=== PATIENT | male | born 1965 | race Caucasian/White ===

== ENCOUNTER → 2016-12-18 | Outpatient (CLI) | payer BC, OTHER ==
[2016-12-18 08:34] LABS: ALBUMIN 3.6 GM/DL (3.2-5.2); ALBUMIN/GLOBULIN RATIO 1.06 (1.00-1.93); ALKALINE PHOSPHATASE 102 U/L (45-117); ALT/SGPT 48 U/L (12-78); ANION GAP 6 MEQ/L (8-16); AST/SGOT 18 U/L (15-37); BILIRUBIN,TOTAL 0.3 MG/DL (0.2-1.0); BLOOD UREA NITROGEN 16 MG/DL (7-18); CARBON DIOXIDE LEVEL 29 MEQ/L (21-32); CHLORIDE LEVEL 106 MEQ/L (98-107); CHOLESTEROL LEVEL 239 MG/DL (<200); GLOMERULAR FILTRATION RATE > 60.0 (>56); GLUCOSE, FASTING 102 MG/DL (70-105); POTASSIUM SERUM 4.3 MEQ/L (3.5-5.1); SODIUM LEVEL 141 MEQ/L (136-145); THYROXINE (T4) 7.5 UG/DL (4.5-12.0); TRIGLYCERIDES LEVEL 446 MG/DL (<150)
== END ==
LOC: M LAB 06:41
PROVIDERS: ATTEND General Practice
DX: R53.83 Other fatigue (principal); R73.03 Prediabetes

== ENCOUNTER → 2017-10-12 | Outpatient (REF) | payer OTHER | LOC: M LAB REF 14:56 | DX: M60.221 Foreign body granuloma of soft tissue, not elsewhere classified, right upper arm (principal); L02.413 Cutaneous abscess of right upper limb | CPT/HCPCS: 88304 ==

== ENCOUNTER → 2017-12-24 | Outpatient (CLI) | payer BC, OTHER ==
[2017-12-24 07:44] LABS: HEMATOCRIT 43.6 % (42.0-52.0); HEMOGLOBIN 15.2 g/dl (13.5-17.5); MEAN CORPUSCULAR HEMOGLOBIN 30.5 pg (27.0-33.0); MEAN CORPUSCULAR HGB CONC 34.9 g/dl (32.0-36.5); MEAN CORPUSCULAR VOLUME 87.4 fl (80.0-96.0); PLATELET COUNT, AUTOMATED 182 10^3/uL (150-450); RED BLOOD COUNT 4.99 10^6/uL (4.30-6.10); RED CELL DISTRIBUTION WIDTH 11.9 % (11.5-14.5); WHITE BLOOD COUNT 5.3 10^3/uL (4.0-10.0)
[2017-12-24 08:13] LABS: ALBUMIN 3.9 GM/DL (3.2-5.2); ALBUMIN/GLOBULIN RATIO 1.15 (1.00-1.93); ALKALINE PHOSPHATASE 88 U/L (45-117); ALT/SGPT 79 U/L (12-78); ANION GAP 6 MEQ/L (8-16); AST/SGOT 35 U/L (7-37); BILIRUBIN,TOTAL 0.4 MG/DL (0.2-1.0); BLOOD UREA NITROGEN 14 MG/DL (7-18); CALCIUM LEVEL 8.2 MG/DL (8.5-10.1); CARBON DIOXIDE LEVEL 28 MEQ/L (21-32); CHLORIDE LEVEL 108 MEQ/L (98-107); CHOLESTEROL LEVEL 243 MG/DL (<200); FREE T4 0.98 NG/DL (0.76-1.46); GLOMERULAR FILTRATION RATE > 60.0 (>56); GLUCOSE, FASTING 96 MG/DL (70-100); HDL CHOLESTEROL 30 MG/DL (>40); NON-HDL-C 213 MG/DL; POTASSIUM SERUM 4.2 MEQ/L (3.5-5.1); SODIUM LEVEL 142 MEQ/L (136-145); THYROID STIMULATING HORMONE 0.727 uIU/ML (0.358-3.740); TOTAL PROTEIN 7.3 GM/DL (6.4-8.2); TRIGLYCERIDES LEVEL 525 MG/DL (<150)
[2017-12-24 09:19] LABS: TOTAL 25(OH) VITAMIN D 33.3 NG/ML (30.0-100.0)
== END ==
LOC: M LAB 06:39
DX: E78.00 Pure hypercholesterolemia, unspecified (principal); R53.81 Other malaise; E55.9 Vitamin D deficiency, unspecified; K62.5 Hemorrhage of anus and rectum
CPT/HCPCS: 84443

== ENCOUNTER → 2018-06-28 | Outpatient (CLI) | payer BC, OTHER ==
[2018-06-28 06:58] LABS: HEMATOCRIT 43.8 % (42.0-52.0); HEMOGLOBIN 14.8 g/dl (13.5-17.5); MEAN CORPUSCULAR HEMOGLOBIN 30.5 pg (27.0-33.0); MEAN CORPUSCULAR HGB CONC 33.8 g/dl (32.0-36.5); MEAN CORPUSCULAR VOLUME 90.3 fl (80.0-96.0); PLATELET COUNT, AUTOMATED 176 10^3/uL (150-450); RED BLOOD COUNT 4.85 10^6/uL (4.30-6.10); WHITE BLOOD COUNT 5.3 10^3/uL (4.0-10.0)
[2018-06-28 07:03] LABS: APPEARANCE, URINE CLEAR (CLEAR); BACTERIA, URINE AUTO NEGATIVE (NEGATIVE); BILIRUBIN, URINE AUTO NEGATIVE (NEGATIVE); BLOOD, URINE BLOOD NEGATIVE (NEGATIVE); COLOR, URINE YELLOW (YELLOW); GLUCOSE, URINE (UA) AUTO NEGATIVE (NEGATIVE); KETONE, URINE AUTO NEGATIVE (NEGATIVE); LEUKOCYTE ESTERASE, URINE AUTO NEGATIVE (NEGATIVE); MUCUS, URINE SMALL (NEGATIVE); NITRITE, URINE AUTO NEGATIVE (NEGATIVE); PROTEIN, URINE AUTO NEGATIVE (NEGATIVE); RBC, URINE AUTO 4 /HPF (0-3); SPECIFIC GRAVITY URINE AUTO 1.024 (1.002-1.035); SQUAMOUS EPITHELIAL CELL UR AU 1 /HPF (0-6); UROBILINOGEN, URINE AUTO 0.2 mg/dL (0.0-2.0); WBC, URINE AUTO 0 /HPF (0-3)
[2018-06-28 07:31] LABS: ALBUMIN 3.7 GM/DL (3.2-5.2); ALBUMIN/GLOBULIN RATIO 1.23 (1.00-1.93); ALKALINE PHOSPHATASE 85 U/L (45-117); ALT/SGPT 54 U/L (12-78); ANION GAP 8 MEQ/L (8-16); AST/SGOT 23 U/L (7-37); BILIRUBIN,TOTAL 0.5 MG/DL (0.2-1.0); BLOOD UREA NITROGEN 23 MG/DL (7-18); CALCIUM LEVEL 8.3 MG/DL (8.5-10.1); CARBON DIOXIDE LEVEL 29 MEQ/L (21-32); CHLORIDE LEVEL 105 MEQ/L (98-107); CHOLESTEROL LEVEL 231 MG/DL (<200); CHOLESTEROL RISK RATIO 8.884 (<5); CREATININE FOR GFR 1.27 MG/DL (0.70-1.30); FREE T4 0.94 NG/DL (0.76-1.46); GLOMERULAR FILTRATION RATE > 60.0 (>56); GLUCOSE, FASTING 103 MG/DL (70-100); HDL CHOLESTEROL 26 MG/DL (>40); NON-HDL-C 205 MG/DL; PROSTATIC SPECIFIC AG MONITOR 0.6 NG/ML (< 4.0); SODIUM LEVEL 142 MEQ/L (136-145); THYROID STIMULATING HORMONE 0.562 uIU/ML (0.358-3.740); TOTAL PROTEIN 6.7 GM/DL (6.4-8.2); TRIGLYCERIDES LEVEL 504 MG/DL (<150)
[2018-07-01 00:56] LABS: VITAMIN D 1,25 DIHYDROXY 51.3 pg/mL (19.9-79.3)
== END ==
LOC: M LAB 06:19
DX: N40.1 Benign prostatic hyperplasia with lower urinary tract symptoms (principal); E78.00 Pure hypercholesterolemia, unspecified; E55.9 Vitamin D deficiency, unspecified; R53.81 Other malaise
CPT/HCPCS: 84443

== ENCOUNTER → 2019-01-05 | Outpatient (CLI) | payer BC, OTHER ==
[2019-01-05 06:44] LABS: HEMATOCRIT 45.2 % (42.0-52.0); HEMOGLOBIN 15.3 g/dl (13.5-17.5); MEAN CORPUSCULAR HEMOGLOBIN 30.6 pg (27.0-33.0); MEAN CORPUSCULAR HGB CONC 33.8 g/dl (32.0-36.5); MEAN CORPUSCULAR VOLUME 90.4 fl (80.0-96.0); PLATELET COUNT, AUTOMATED 178 10^3/uL (150-450); WHITE BLOOD COUNT 5.6 10^3/uL (4.0-10.0)
[2019-01-05 07:17] LABS: ALBUMIN 3.8 GM/DL (3.2-5.2); ALT/SGPT 53 U/L (12-78); BILIRUBIN,TOTAL 0.4 MG/DL (0.2-1.0); BLOOD UREA NITROGEN 16 MG/DL (7-18); CALCIUM LEVEL 8.5 MG/DL (8.5-10.1); CARBON DIOXIDE LEVEL 31 MEQ/L (21-32); CHLORIDE LEVEL 107 MEQ/L (98-107); CHOLESTEROL LEVEL 240 MG/DL (<200); CHOLESTEROL RISK RATIO 8.888 (<5); CREATININE FOR GFR 1.13 MG/DL (0.70-1.30); GLOMERULAR FILTRATION RATE > 60.0 (>56); GLUCOSE, FASTING 105 MG/DL (70-100); HDL CHOLESTEROL 27 MG/DL (>40); NON-HDL-C 213 MG/DL; POTASSIUM SERUM 4.4 MEQ/L (3.5-5.1); SODIUM LEVEL 140 MEQ/L (136-145); THYROID STIMULATING HORMONE 0.721 uIU/ML (0.358-3.740); TOTAL PROTEIN 7.1 GM/DL (6.4-8.2); TRIGLYCERIDES LEVEL 609 MG/DL (<150)
[2019-01-05 09:29] LABS: VITAMIN B12 LEVEL 267 PG/ML (247-911)
== END ==
LOC: M LAB 06:06
PROVIDERS: ATTEND General Practice
DX: E78.00 Pure hypercholesterolemia, unspecified (principal)

== ENCOUNTER → 2020-01-26 | Outpatient (CLI) | payer BC, OTHER ==
[2020-01-26 10:10] LABS: HEMATOCRIT 44.8 % (42.0-52.0); MEAN CORPUSCULAR HEMOGLOBIN 30.3 pg (27.0-33.0); MEAN CORPUSCULAR HGB CONC 33.5 g/dl (32.0-36.5); MEAN CORPUSCULAR VOLUME 90.5 fl (80.0-96.0); PLATELET COUNT, AUTOMATED 191 10^3/uL (150-450); RED BLOOD COUNT 4.95 10^6/uL (4.30-6.10); WHITE BLOOD COUNT 5.4 10^3/uL (4.0-10.0)
[2020-01-26 10:41] LABS: ALBUMIN 3.8 GM/DL (3.2-5.2); ALT/SGPT 65 U/L (12-78); BILIRUBIN,TOTAL 0.4 MG/DL (0.2-1.0); BLOOD UREA NITROGEN 16 MG/DL (7-18); CALCIUM LEVEL 8.7 MG/DL (8.5-10.1); CARBON DIOXIDE LEVEL 28 MEQ/L (21-32); CHLORIDE LEVEL 108 MEQ/L (98-107); CHOLESTEROL LEVEL 279 MG/DL (<200); CREATININE FOR GFR 1.14 MG/DL (0.70-1.30); FREE T4 1.21 NG/DL (0.76-1.46); GLOMERULAR FILTRATION RATE > 60.0 (>56); GLUCOSE, FASTING 106 MG/DL (70-100); HDL CHOLESTEROL 31 MG/DL (>40); NON-HDL-C 248 MG/DL; POTASSIUM SERUM 4.8 MEQ/L (3.5-5.1); SODIUM LEVEL 141 MEQ/L (136-145); THYROID STIMULATING HORMONE 0.484 uIU/ML (0.358-3.740); TRIGLYCERIDES LEVEL 534 MG/DL (<150)
[2020-01-26 10:42] LABS: TOTAL 25(OH) VITAMIN D 50.1 NG/ML (30.0-100.0)
== END ==
LOC: M LAB 09:16
PROVIDERS: ATTEND General Practice
DX: E78.00 Pure hypercholesterolemia, unspecified (principal); R53.81 Other malaise; E55.9 Vitamin D deficiency, unspecified

== ENCOUNTER → 2020-07-30 | Outpatient (CLI) | payer BC, OTHER ==
[2020-07-30 07:08] LABS: AMORPHOUS SEDIMENT SMALL (NEGATIVE); APPEARANCE, URINE HAZY (CLEAR); BACTERIA, URINE AUTO NEGATIVE (NEGATIVE); BILIRUBIN, URINE AUTO NEGATIVE (NEGATIVE); BLOOD, URINE BLOOD NEGATIVE (NEGATIVE); CALCIUM OXALATE CRYSTALS SMALL; COLOR, URINE YELLOW (YELLOW); GLUCOSE, URINE (UA) AUTO NEGATIVE (NEGATIVE); KETONE, URINE AUTO NEGATIVE (NEGATIVE); LEUKOCYTE ESTERASE, URINE AUTO NEGATIVE (NEGATIVE); MUCUS, URINE SMALL (NEGATIVE); NITRITE, URINE AUTO NEGATIVE (NEGATIVE); PROTEIN, URINE AUTO NEGATIVE (NEGATIVE); RBC, URINE AUTO 2 /HPF (0-3); SPECIFIC GRAVITY URINE AUTO 1.021 (1.002-1.035); SQUAMOUS EPITHELIAL CELL UR AU 0 /HPF (0-6); UROBILINOGEN, URINE AUTO 0.2 mg/dL (0.0-2.0); WBC, URINE AUTO 0 /HPF (0-3)
[2020-07-30 07:56] LABS: ALBUMIN 3.7 GM/DL (3.2-5.2); ALT/SGPT 62 U/L (12-78); BILIRUBIN,TOTAL 0.4 MG/DL (0.2-1.0); BLOOD UREA NITROGEN 17 MG/DL (7-18); CALCIUM LEVEL 8.6 MG/DL (8.5-10.1); CARBON DIOXIDE LEVEL 29 MEQ/L (21-32); CHLORIDE LEVEL 108 MEQ/L (98-107); CHOLESTEROL LEVEL 257 MG/DL (<200); CHOLESTEROL RISK RATIO 8.566 (<5); CREATININE FOR GFR 1.33 MG/DL (0.70-1.30); FREE T4 0.98 NG/DL (0.76-1.46); GLOMERULAR FILTRATION RATE 59.9 (>56); GLUCOSE, FASTING 112 MG/DL (70-100); HDL CHOLESTEROL 30 MG/DL (>40); NON-HDL-C 227 MG/DL; PROSTATIC SPECIFIC AG MONITOR 0.46 NG/ML (< 4.00); SODIUM LEVEL 143 MEQ/L (136-145); THYROID STIMULATING HORMONE 0.411 uIU/ML (0.358-3.740); TOTAL PROTEIN 6.8 GM/DL (6.4-8.2); TRIGLYCERIDES LEVEL 414 MG/DL (<150)
== END ==
LOC: M LAB 06:36
PROVIDERS: ATTEND General Practice
DX: E78.00 Pure hypercholesterolemia, unspecified (principal); N40.1 Benign prostatic hyperplasia with lower urinary tract symptoms; R53.81 Other malaise; E55.9 Vitamin D deficiency, unspecified

== ENCOUNTER → 2021-02-05 | Outpatient (CLI) | payer BC, OTHER ==
[2021-02-05 07:47] LABS: ALBUMIN 3.8 GM/DL (3.2-5.2); ALT/SGPT 63 U/L (12-78); BILIRUBIN,TOTAL 0.4 MG/DL (0.2-1.0); BLOOD UREA NITROGEN 21 MG/DL (7-18); CALCIUM LEVEL 8.8 MG/DL (8.5-10.1); CARBON DIOXIDE LEVEL 29 MEQ/L (21-32); CHLORIDE LEVEL 109 MEQ/L (98-107); CHOLESTEROL LEVEL 261 MG/DL (<200); CHOLESTEROL RISK RATIO 9.321 (<5); CREATININE FOR GFR 1.08 MG/DL (0.70-1.30); GLOMERULAR FILTRATION RATE > 60.0 (>56); GLUCOSE, FASTING 102 MG/DL (70-100); HDL CHOLESTEROL 28 MG/DL (>40); NON-HDL-C 233 MG/DL; POTASSIUM SERUM 4.5 MEQ/L (3.5-5.1); SODIUM LEVEL 141 MEQ/L (136-145); THYROID STIMULATING HORMONE 0.586 uIU/ML (0.358-3.740); TRIGLYCERIDES LEVEL 532 MG/DL (<150)
== END ==
LOC: M LAB 06:14
PROVIDERS: ATTEND General Practice
DX: E78.00 Pure hypercholesterolemia, unspecified (principal); R53.81 Other malaise; E55.9 Vitamin D deficiency, unspecified

== ENCOUNTER → 2021-07-30 | Outpatient (CLI) | payer BC, OTHER ==
[2021-07-30 06:54] LABS: HEMATOCRIT 42.9 % (42.0-52.0); HEMOGLOBIN 14.5 g/dl (13.5-17.5); MEAN CORPUSCULAR HEMOGLOBIN 30.5 pg (27.0-33.0); MEAN CORPUSCULAR HGB CONC 33.8 g/dl (32.0-36.5); MEAN CORPUSCULAR VOLUME 90.1 fl (80.0-96.0); PLATELET COUNT, AUTOMATED 177 10^3/uL (150-450); RED BLOOD COUNT 4.76 10^6/uL (4.30-6.10); WHITE BLOOD COUNT 5.3 10^3/uL (4.0-10.0)
[2021-07-30 07:01] LABS: APPEARANCE, URINE HAZY (CLEAR); BACTERIA, URINE AUTO NEGATIVE (NEGATIVE); BILIRUBIN, URINE AUTO NEGATIVE (NEGATIVE); BLOOD, URINE BLOOD NEGATIVE (NEGATIVE); COLOR, URINE YELLOW (YELLOW); GLUCOSE, URINE (UA) AUTO NEGATIVE (NEGATIVE); KETONE, URINE AUTO NEGATIVE (NEGATIVE); LEUKOCYTE ESTERASE, URINE AUTO NEGATIVE (NEGATIVE); MUCUS, URINE SMALL (NEGATIVE); NITRITE, URINE AUTO NEGATIVE (NEGATIVE); PROTEIN, URINE AUTO NEGATIVE (NEGATIVE); RBC, URINE AUTO 1 /HPF (0-3); SQUAMOUS EPITHELIAL CELL UR AU 0 /HPF (0-6); UROBILINOGEN, URINE AUTO 0.2 mg/dL (0.0-2.0); WBC, URINE AUTO 0 /HPF (0-3)
[2021-07-30 07:25] LABS: ALBUMIN 3.8 GM/DL (3.2-5.2); ALT/SGPT 54 U/L (12-78); BILIRUBIN,TOTAL 0.4 MG/DL (0.2-1.0); BLOOD UREA NITROGEN 18 MG/DL (7-18); CARBON DIOXIDE LEVEL 30 MEQ/L (21-32); CHLORIDE LEVEL 105 MEQ/L (98-107); CHOLESTEROL LEVEL 243 MG/DL (<200); CHOLESTEROL RISK RATIO 7.593 (<5); CREATININE FOR GFR 1.16 MG/DL (0.70-1.30); FREE T4 0.98 NG/DL (0.76-1.46); GLOMERULAR FILTRATION RATE > 60.0 (>56); GLUCOSE, FASTING 110 MG/DL (70-100); HDL CHOLESTEROL 32 MG/DL (>40); LDL CHOLESTEROL 152 MG/DL (<100); NON-HDL-C 211 MG/DL; POTASSIUM SERUM 4.2 MEQ/L (3.5-5.1); SODIUM LEVEL 140 MEQ/L (136-145); TOTAL PROTEIN 7.1 GM/DL (6.4-8.2); TRIGLYCERIDES LEVEL 297 MG/DL (<150)
== END ==
LOC: M LAB 06:13
PROVIDERS: ATTEND General Practice
DX: N40.1 Benign prostatic hyperplasia with lower urinary tract symptoms (principal); E78.00 Pure hypercholesterolemia, unspecified; R53.81 Other malaise; E55.9 Vitamin D deficiency, unspecified
CPT/HCPCS: 36415; 80053; 80061; 81001; 82652; 84439; 84443; 85027; G0103

== ENCOUNTER → 2022-03-02 | Outpatient (CLI) | payer BC, OTHER ==
[2022-03-02 06:40] LABS: HEMATOCRIT 41.8 % (42.0-52.0); HEMOGLOBIN 13.9 g/dl (13.5-17.5); MEAN CORPUSCULAR HEMOGLOBIN 30.3 pg (27.0-33.0); MEAN CORPUSCULAR HGB CONC 33.3 g/dl (32.0-36.5); MEAN CORPUSCULAR VOLUME 91.1 fl (80.0-96.0); PLATELET COUNT, AUTOMATED 174 10^3/uL (150-450); RED BLOOD COUNT 4.59 10^6/uL (4.30-6.10); WHITE BLOOD COUNT 5.2 10^3/uL (4.0-10.0)
[2022-03-02 07:13] LABS: ALBUMIN 3.6 GM/DL (3.2-5.2); ALT/SGPT 44 U/L (12-78); BILIRUBIN,TOTAL 0.3 MG/DL (0.2-1.0); BLOOD UREA NITROGEN 13 MG/DL (7-18); CALCIUM LEVEL 8.5 MG/DL (8.5-10.1); CARBON DIOXIDE LEVEL 27 MEQ/L (21-32); CHLORIDE LEVEL 111 MEQ/L (98-107); CHOLESTEROL LEVEL 237 MG/DL (<200); CREATININE FOR GFR 1.11 MG/DL (0.70-1.30); GLOMERULAR FILTRATION RATE > 60.0 (>56); GLUCOSE, FASTING 115 MG/DL (70-100); HDL CHOLESTEROL 34 MG/DL (>40); LDL CHOLESTEROL 155 MG/DL (<100); NON-HDL-C 203 MG/DL; POTASSIUM SERUM 4.4 MEQ/L (3.5-5.1); SODIUM LEVEL 144 MEQ/L (136-145); THYROID STIMULATING HORMONE 0.733 uIU/ML (0.358-3.740); TOTAL PROTEIN 6.9 GM/DL (6.4-8.2); TRIGLYCERIDES LEVEL 240 MG/DL (<150)
[2022-03-02 12:15] LABS: TOTAL 25(OH) VITAMIN D 44.4 NG/ML (30.0-100.0)
== END ==
LOC: M LAB 06:12
PROVIDERS: ATTEND General Practice
DX: E78.00 Pure hypercholesterolemia, unspecified (principal); R53.81 Other malaise; E55.9 Vitamin D deficiency, unspecified

== ENCOUNTER → 2022-08-29 | Outpatient (CLI) | payer BC, OTHER ==
[2022-08-29 09:26] LABS: APPEARANCE, URINE MANUAL CLEAR (CLEAR); COLOR, URINE MANUAL YELLOW (YELLOW)
[2022-08-29 09:27] LABS: BILIRUBIN, URINE MANUAL NEGATIVE (NEGATIVE); BLOOD URINE MANUAL NEGATIVE (NEGATIVE); GLUCOSE, URINE (UA) MANUAL NEGATIVE (NEGATIVE); KETONE, URINE MANUAL NEGATIVE (NEGATIVE); LEUKOCYTE ESTERASE, URINE MAN NEGATIVE (NEGATIVE); NITRITE, URINE MANUAL NEGATIVE (NEGATIVE); PH,URINE MAN 7.5 UNITS (5.0 - 7.0); PROTEIN, URINE MANUAL NEGATIVE (NEGATIVE); SPECIFIC GRAVITY,URINE MANUAL 1.015 (1.002-1.035); UROBILINOGEN, URINE MANUAL NORMAL (NORMAL)
[2022-08-29 09:59] LABS: ALBUMIN 3.9 G/DL (3.2-5.2); ALKALINE PHOSPHATASE 94 U/L (46-116); ALT/SGPT 47 U/L (7.0-40); AST/SGOT 21 U/L (<34); BILIRUBIN,TOTAL 0.4 MG/DL (0.3-1.2); BLOOD UREA NITROGEN 16 MG/DL (9-23); CALCIUM LEVEL 9.3 MG/DL (8.5-10.1); CARBON DIOXIDE LEVEL 29 MMOL/L (20-31); CHLORIDE LEVEL 106 MMOL/L (98-107); CHOLESTEROL LEVEL 262 MG/DL (<200); CREATININE FOR GFR 1.04 MG/DL (0.70-1.30); GLOMERULAR FILTRATION RATE > 60.0 (>56); GLUCOSE, FASTING 108 MG/DL (60-100); HDL CHOLESTEROL 35.4 MG/DL (>40); LDL CHOLESTEROL 172.8 MG/DL (<100); NON-HDL-C 227 MG/DL; POTASSIUM SERUM 4.7 MMOL/L (3.5-5.1); SODIUM LEVEL 142 MMOL/L (136-145); TRIGLYCERIDES LEVEL 269 MG/DL (<150)
[2022-08-29 10:01] LABS: FREE T4 1.12 NG/DL (0.89-1.76); THYROID STIMULATING HORMONE 0.504 uIU/ML (0.55-4.78)
== END ==
LOC: M LAB 08:48
PROVIDERS: ATTEND General Practice
DX: E78.00 Pure hypercholesterolemia, unspecified (principal); N40.1 Benign prostatic hyperplasia with lower urinary tract symptoms; R53.81 Other malaise; E55.9 Vitamin D deficiency, unspecified; Z12.5 Encounter for screening for malignant neoplasm of prostate
CPT/HCPCS: 36415; 80053; 80061; 81002; 82652; 84439; 84443; G0103

== ENCOUNTER → 2022-09-30 | Outpatient (REF) | payer BC, OTHER | LOC: M LAB REF 16:04 | PROVIDERS: ATTEND Surgery | DX: L72.0 Epidermal cyst (principal) ==

== ENCOUNTER 2023-03-02 19:16 | Emergency (ER) | payer BC, OTHER ==
[~2023-03-02] VITALS: Ht 182.9 cm; Wt 100.0 kg
[2023-03-02] MEDS ORDERED: AMLO1TAB25 PO (19:23)
[2023-03-02] MEDS ORDERED: ACETAMINOPHEN TAB 650MG DOSE (2X325MG) PO ONE (20:55)
[2023-03-02] MEDS ORDERED: NORCO 5/325MG TABLET (HOME DOSE PACK) PO ONE (20:55)
[2023-03-02] MEDS ORDERED: HYDR-3713 PO (21:05)
[2023-03-02 21:10] VITALS: BP 158/76
[2023-03-02 21:16] VITALS: TEMP 98.8; O2SAT 95
== END 2023-03-02 21:46 | disposition home or self-care (01) ==
LOC: M ED 19:16
DX: S42.001A Fracture of unspecified part of right clavicle, initial encounter for closed fracture (principal); S09.90XA Unspecified injury of head, initial encounter; W11.XXXA Fall on and from ladder, initial encounter; Y92.009 Unspecified place in unspecified non-institutional (private) residence as the place of occurrence of the external cause; Y93.89 Activity, other specified; Y99.8 Other external cause status; I10 Essential (primary) hypertension; Z79.899 Other long term (current) drug therapy

== ENCOUNTER 2023-03-10 12:15 | Day surgery (SDC) | payer BC, OTHER ==
[~2023-03-10] VITALS: Ht 182.9 cm; Wt 99.8 kg
[~2023-03-10 12:15] MED LIST: AMLO1TAB25 PO; HYDR-3713 PO
[2023-03-10] MEDS ORDERED: LR 1,000 ML IV SCH ×2 (12:25→17:35)
[2023-03-10] MEDS ORDERED: LIDOCAINE 1% SDV 5ML VIAL SC PRN (12:25)
[2023-03-10] MEDS ORDERED: SODIUM BICARBONATE 8.4% INJ 50MEQ 50ML VIAL As Ordered ONE (14:44)
[2023-03-10] MEDS ORDERED: LIDOCAINE W/EPINEPHRINE 1% 20ML VIAL As Ordered ONE (14:44)
[2023-03-10] MEDS ORDERED: LIDOCAINE 2% 100MG/5ML SDV (FOR ANES.) As Ordered ONE (15:45)
[2023-03-10] MEDS ORDERED: MIDAZOLAM INJ 2MG/2ML VIAL As Ordered ONE (15:45)
[2023-03-10] MEDS ORDERED: ONDANSETRON 4MG 2ML VIAL As Ordered ONE (15:45)
[2023-03-10] MEDS ORDERED: fentaNYL 100 MCG/2 ML INJECTION As Ordered ONE (15:45)
[2023-03-10] MEDS ORDERED: SUGAMMADEX SODIUM 500 MG/5 ML VIAL (BRIDION) As Ordered ONE (15:45)
[2023-03-10] MEDS ORDERED: ROCURONIUM BROMIDE 50MG/5ML VIAL As Ordered ONE ×2 (15:45→15:51)
[2023-03-10] MEDS ORDERED: propofoL 200 MG/20 ML VIAL As Ordered ONE (15:45)
[2023-03-10] MEDS ORDERED: ceFAZolin 2 GM/D5W 50 ML IV BAG As Ordered ONE (15:54)
[2023-03-10] MEDS ORDERED: ACETAMINOPHEN 1000MG 100ML IV BAG As Ordered ONE (16:02)
[2023-03-10] MEDS ORDERED: HYDROmorphone HCL 2MG/ML 1ML VIAL As Ordered ONE (16:20)
[2023-03-10] MEDS ORDERED: ePHEDrine SULFATE 25 MG/5 ML(5MG/ML) SYRINGE As Ordered ONE (16:28)
[2023-03-10] MEDS ORDERED: KETOROLAC 60MG 2ML VIAL As Ordered ONE (17:24)
[2023-03-10] MEDS ORDERED: ONDANSETRON 4MG 2ML VIAL IV PRN (17:35)
[2023-03-10] MEDS ORDERED: oxyCODONE 5MG TAB PO PRN (17:35)
[2023-03-10] MEDS ORDERED: fentaNYL 100 MCG/2 ML INJECTION IV PRN (17:35)
[2023-03-10] MEDS ORDERED: MORPHINE 2 MG/ML 1ML VIAL IV PRN (17:35)
[2023-03-10] MEDS ORDERED: HYDROMORPHONE HCL 0.5 MG/ 0.5 ML SYRINGE IV PRN (17:35)
[2023-03-10] MEDS ORDERED: PERC5TAB12 PO (17:49)
[2023-03-10] MEDS ORDERED: PROMETHAZINE 25MG/ML 1ML VIAL IV PRN (18:15)
[2023-03-10] MEDS ORDERED: METOCLOPRAMIDE INJ 10MG/2ML VIAL IV PRN (18:15)
[2023-03-10 19:10] VITALS: BP 148/72; TEMP 98.1; O2SAT 98
== END 2023-03-10 19:25 | disposition home or self-care (01) ==
LOC: M SDC 12:15
PROVIDERS: ATTEND Orthopaedic Surgery Hand Surgery
DX: S42.021A Displaced fracture of shaft of right clavicle, initial encounter for closed fracture (principal); W17.89XA Other fall from one level to another, initial encounter; Y92.098 Other place in other non-institutional residence as the place of occurrence of the external cause; Y93.H3 Activity, building and construction; I10 Essential (primary) hypertension; E78.00 Pure hypercholesterolemia, unspecified; I31.9 Disease of pericardium, unspecified; Z79.899 Other long term (current) drug therapy
CPT/HCPCS: 23515; 76000; 93005; C1713; J0131; J0690; J1100; J1170; J1885; J2250; J2405; J2765; J3010

== ENCOUNTER → 2023-03-17 | Outpatient (CLI) | payer BC, OTHER ==
[~2023-03-17] MED LIST changes: +PERC5TAB12 PO
== END ==
LOC: M SOG 08:22
PROVIDERS: ATTEND Orthopaedic Surgery
DX: S42.021A Displaced fracture of shaft of right clavicle, initial encounter for closed fracture (principal); Y93.9 Activity, unspecified; Y92.9 Unspecified place or not applicable

== ENCOUNTER → 2023-04-01 | Outpatient (CLI) | payer BC, OTHER ==
[2023-04-01 07:57] LABS: HEMATOCRIT 43.3 % (42.0-52.0); HEMOGLOBIN 14.3 g/dl (13.5-17.5); MEAN CORPUSCULAR HEMOGLOBIN 30.4 pg (27.0-33.0); MEAN CORPUSCULAR VOLUME 92.1 fl (80.0-96.0); PLATELET COUNT, AUTOMATED 196 10^3/uL (150-450); WHITE BLOOD COUNT 5.1 10^3/uL (4.0-10.0)
[2023-04-01 08:26] LABS: HEMOGLOBIN A1c 6.3 % (4.0-6.0)
[2023-04-01 08:28] LABS: ALBUMIN 3.7 G/DL (3.2-5.2); ALKALINE PHOSPHATASE 140 U/L (46-116); ALT/SGPT 40 U/L (7.0-40); AST/SGOT 12 U/L (<34); BILIRUBIN,TOTAL 0.3 MG/DL (0.3-1.2); BLOOD UREA NITROGEN 14 MG/DL (9-23); CALCIUM LEVEL 9.3 MG/DL (8.5-10.1); CARBON DIOXIDE LEVEL 31 MMOL/L (20-31); CHLORIDE LEVEL 105 MMOL/L (98-107); CHOLESTEROL LEVEL 275 MG/DL (<200); CHOLESTEROL RISK RATIO 6.47 (<5); CREATININE FOR GFR 0.98 MG/DL (0.70-1.30); FREE T4 1.11 NG/DL (0.89-1.76); GLOMERULAR FILTRATION RATE > 60.0 (>56); GLUCOSE, FASTING 101 MG/DL (60-100); HDL CHOLESTEROL 42.5 MG/DL (>40); LDL CHOLESTEROL 161.7 MG/DL (<100); NON-HDL-C 232.5 MG/DL; POTASSIUM SERUM 4.6 MMOL/L (3.5-5.1); SODIUM LEVEL 140 MMOL/L (136-145); THYROID STIMULATING HORMONE 0.466 uIU/ML (0.55-4.78); TOTAL 25(OH) VITAMIN D 33.4 NG/ML (20.0-100.0); TOTAL PROTEIN 6.9 G/DL (5.7-8.2); TRIGLYCERIDES LEVEL 354 MG/DL (<150)
== END ==
LOC: M LAB 07:26
PROVIDERS: ATTEND General Practice
DX: E78.00 Pure hypercholesterolemia, unspecified (principal); R53.81 Other malaise; L98.9 Disorder of the skin and subcutaneous tissue, unspecified; E55.9 Vitamin D deficiency, unspecified; R73.09 Other abnormal glucose

== ENCOUNTER → 2023-04-22 | Outpatient (CLI) | payer BC, OTHER | LOC: M SOG 10:36 | PROVIDERS: ATTEND Physician Assistant | DX: S42.021A Displaced fracture of shaft of right clavicle, initial encounter for closed fracture (principal) ==

== ENCOUNTER → 2023-06-03 | Outpatient (CLI) | payer BC, OTHER | LOC: M SOG 07:55 | PROVIDERS: ATTEND Physician Assistant | DX: S42.021A Displaced fracture of shaft of right clavicle, initial encounter for closed fracture (principal); Y93.9 Activity, unspecified; Y92.9 Unspecified place or not applicable ==

== ENCOUNTER → 2023-10-05 | Outpatient (CLI) | payer BC, OTHER ==
[2023-10-05 09:00] LABS: HEMATOCRIT 43.9 % (42.0-52.0); HEMOGLOBIN 14.9 g/dl (13.5-17.5); MEAN CORPUSCULAR HGB CONC 33.9 g/dl (32.0-36.5); MEAN CORPUSCULAR VOLUME 91.3 fl (80.0-96.0); PLATELET COUNT, AUTOMATED 180 10^3/uL (150-450); RED BLOOD COUNT 4.81 10^6/uL (4.30-6.10); WHITE BLOOD COUNT 5.4 10^3/uL (4.0-10.0)
[2023-10-05 09:10] LABS: APPEARANCE, URINE CLEAR (CLEAR); BACTERIA, URINE AUTO NEGATIVE (NEGATIVE); BILIRUBIN, URINE AUTO NEGATIVE (NEGATIVE); BLOOD, URINE BLOOD NEGATIVE (NEGATIVE); COLOR, URINE YELLOW (YELLOW); GLUCOSE, URINE (UA) AUTO NEGATIVE (NEGATIVE); KETONE, URINE AUTO NEGATIVE (NEGATIVE); LEUKOCYTE ESTERASE, URINE AUTO NEGATIVE (NEGATIVE); MUCUS, URINE SMALL (NEGATIVE); NITRITE, URINE AUTO NEGATIVE (NEGATIVE); PROTEIN, URINE AUTO NEGATIVE (NEGATIVE); RBC, URINE AUTO 0 /HPF (0-3); SQUAMOUS EPITHELIAL CELL UR AU 0 /HPF (0-6); UROBILINOGEN, URINE AUTO 0.2 mg/dL (0.0-2.0); WBC, URINE AUTO 0 /HPF (0-3)
[2023-10-05 09:18] LABS: CREATININE, URINE 176.9 MG/DL; CREATININE,RANDOM URINE 176.9 MG/DL; MALB URINE SIEMENS < 3.0 MG/L; MAU/CREAT RATIO 1.6 MCG/MG (0.0-30.0)
[2023-10-05 09:20] LABS: ALBUMIN 3.8 G/DL (3.2-5.2); ALKALINE PHOSPHATASE 91 U/L (46-116); ALT/SGPT 63 U/L (7.0-40); AST/SGOT 26 U/L (<34); BILIRUBIN,TOTAL 0.6 MG/DL (0.3-1.2); BLOOD UREA NITROGEN 18 MG/DL (9-23); CALCIUM LEVEL 8.8 MG/DL (8.5-10.1); CARBON DIOXIDE LEVEL 30 MMOL/L (20-31); CHLORIDE LEVEL 104 MMOL/L (98-107); CHOLESTEROL LEVEL 254 MG/DL (<200); CHOLESTEROL RISK RATIO 7.36 (<5); CREATININE FOR GFR 1.13 MG/DL (0.70-1.30); GLOMERULAR FILTRATION RATE > 60.0 (>56); GLUCOSE, FASTING 101 MG/DL (60-100); HDL CHOLESTEROL 34.5 MG/DL (>40); NON-HDL-C 219.5 MG/DL; PROSTATIC SPECIFIC AG MONITOR 0.36 NG/ML (< 4.00); SODIUM LEVEL 139 MMOL/L (136-145); TOTAL PROTEIN 6.8 G/DL (5.7-8.2); TRIGLYCERIDES LEVEL 472 MG/DL (<150)
[2023-10-05 09:21] LABS: HEMOGLOBIN A1c 5.6 % (4.0-6.0)
[2023-10-05 09:22] LABS: FREE T4 1.11 NG/DL (0.89-1.76); THYROID STIMULATING HORMONE 0.622 uIU/ML (0.55-4.78)
== END ==
LOC: M LAB 07:46
PROVIDERS: ATTEND General Practice
DX: E11.9 Type 2 diabetes mellitus without complications (principal); K62.5 Hemorrhage of anus and rectum; N40.1 Benign prostatic hyperplasia with lower urinary tract symptoms

== ENCOUNTER → 2024-10-20 | Outpatient (CLI) | payer BC, OTHER ==
[2024-10-20 10:03] LABS: APPEARANCE, URINE CLEAR (CLEAR); BACTERIA, URINE AUTO NEGATIVE (NEGATIVE); BILIRUBIN, URINE AUTO NEGATIVE (NEGATIVE); BLOOD, URINE BLOOD NEGATIVE (NEGATIVE); COLOR, URINE YELLOW (YELLOW); GLUCOSE, URINE (UA) AUTO NEGATIVE (NEGATIVE); KETONE, URINE AUTO NEGATIVE (NEGATIVE); LEUKOCYTE ESTERASE, URINE AUTO NEGATIVE (NEGATIVE); MUCUS, URINE SMALL (NEGATIVE); NITRITE, URINE AUTO NEGATIVE (NEGATIVE); PROTEIN, URINE AUTO NEGATIVE (NEGATIVE); RBC, URINE AUTO 1 /HPF (0-3); SPECIFIC GRAVITY URINE AUTO 1.021 (1.002-1.035); SQUAMOUS EPITHELIAL CELL UR AU 0 /HPF (0-6); UROBILINOGEN, URINE AUTO 0.2 mg/dL (0.0-2.0); WBC, URINE AUTO 1 /HPF (0-3)
[2024-10-20 10:04] LABS: HEMATOCRIT 45.5 % (42.0-52.0); HEMOGLOBIN 15.6 g/dl (13.5-17.5); MEAN CORPUSCULAR HEMOGLOBIN 30.9 pg (27.0-33.0); MEAN CORPUSCULAR HGB CONC 34.3 g/dl (32.0-36.5); MEAN CORPUSCULAR VOLUME 90.1 fl (80.0-96.0); PLATELET COUNT, AUTOMATED 197 10^3/uL (150-450); RED BLOOD COUNT 5.05 10^6/uL (4.30-6.10); WHITE BLOOD COUNT 5.4 10^3/uL (4.0-10.0)
[2024-10-20 10:29] LABS: ALBUMIN 3.9 G/DL (3.2-5.2); ALKALINE PHOSPHATASE 95 U/L (40-129); ALT/SGPT 57 U/L (7.0-40); AST/SGOT 24 U/L (<34); BILIRUBIN,TOTAL 0.6 MG/DL (0.3-1.2); BLOOD UREA NITROGEN 20 MG/DL (9-23); CALCIUM LEVEL 9.2 MG/DL (8.5-10.1); CARBON DIOXIDE LEVEL 30 MMOL/L (20-31); CHLORIDE LEVEL 103 MMOL/L (98-107); CHOLESTEROL LEVEL 257 MG/DL (<200); CHOLESTEROL RISK RATIO 7.47 (<5); CREATININE FOR GFR 1.22 MG/DL (0.70-1.30); GLOMERULAR FILTRATION RATE > 60.0 (>56); GLUCOSE, FASTING 105 MG/DL (60-100); HDL CHOLESTEROL 34.4 MG/DL (>40); NON-HDL-C 222.6 MG/DL; POTASSIUM SERUM 4.1 MMOL/L (3.5-5.1); SODIUM LEVEL 142 MMOL/L (136-145); TOTAL PROTEIN 7.4 G/DL (5.7-8.2); TRIGLYCERIDES LEVEL 410 MG/DL (<150)
[2024-10-20 10:30] LABS: PSA SCREENING 0.53 NG/ML (< 4.00)
[2024-10-20 10:35] LABS: FREE T4 1.15 NG/DL (0.89-1.76)
[2024-10-20 10:44] LABS: CREATININE, URINE 256.3 MG/DL; MAU/CREAT RATIO 3.9 MCG/MG (0.0-30.0)
[2024-10-20 11:04] LABS: HEMOGLOBIN A1c 5.5 % (4.0-6.0)
== END ==
LOC: M LAB 09:09
PROVIDERS: ATTEND General Practice
DX: E11.9 Type 2 diabetes mellitus without complications (principal); N40.1 Benign prostatic hyperplasia with lower urinary tract symptoms; E78.00 Pure hypercholesterolemia, unspecified; R53.81 Other malaise
CPT/HCPCS: 36415; 80053; 80061; 81001; 82043; 82652; 83036; 84439; 84443; 85027; 87086; G0103

== ENCOUNTER → 2025-04-28 | Outpatient (CLI) | payer BC ==
[2025-04-28 11:27] LABS: ESTIMATED AVERAGE GLUCOSE 120.0 MG/DL (60-110)
[2025-04-28 11:35] LABS: APPEARANCE, URINE CLEAR (CLEAR); BACTERIA, URINE AUTO NEGATIVE (NEGATIVE); BILIRUBIN, URINE AUTO NEGATIVE (NEGATIVE); BLOOD, URINE BLOOD NEGATIVE (NEGATIVE); GLUCOSE, URINE (UA) AUTO NEGATIVE (NEGATIVE); KETONE, URINE AUTO NEGATIVE (NEGATIVE); LEUKOCYTE ESTERASE, URINE AUTO NEGATIVE (NEGATIVE); MUCUS, URINE SMALL (NEGATIVE); NITRITE, URINE AUTO NEGATIVE (NEGATIVE); PROTEIN, URINE AUTO NEGATIVE (NEGATIVE); RBC, URINE AUTO 1 /HPF (0-3); SPECIFIC GRAVITY URINE AUTO 1.023 (1.002-1.035); SQUAMOUS EPITHELIAL CELL UR AU 0 /HPF (0-6); UROBILINOGEN, URINE AUTO 0.2 mg/dL (0.0-2.0); WBC, URINE AUTO 0 /HPF (0-3)
[2025-04-28 11:37] LABS: ALT/SGPT 57 U/L (7.0-40); AST/SGOT 27 U/L (<34); CALCIUM LEVEL 8.9 MG/DL (8.5-10.1); CARBON DIOXIDE LEVEL 28 MMOL/L (20-31); CHLORIDE LEVEL 105 MMOL/L (98-107); CHOLESTEROL LEVEL 250 MG/DL (<200); CHOLESTEROL RISK RATIO 7.50 (<5); CREATININE FOR GFR 1.07 MG/DL (0.70-1.30); GLOMERULAR FILTRATION RATE 80.4 (>56); NON-HDL-C 216.7 MG/DL; POTASSIUM SERUM 4.3 MMOL/L (3.5-5.1); SODIUM LEVEL 141 MMOL/L (136-145); TRIGLYCERIDES LEVEL 497 MG/DL (<150)
[2025-04-28 11:39] LABS: FREE T4 1.27 NG/DL (0.89-1.76); VITAMIN B12 LEVEL 326 PG/ML (211-911)
== END ==
LOC: M LAB 08:06
PROVIDERS: ATTEND General Practice
DX: E11.9 Type 2 diabetes mellitus without complications (principal); E78.00 Pure hypercholesterolemia, unspecified; E55.9 Vitamin D deficiency, unspecified; R53.81 Other malaise

== ENCOUNTER → 2025-07-30 | Outpatient (CLI) | payer BC ==
[2025-07-30 08:12] LABS: BASO # 0.0 10^3/uL (0.0-0.2); BASO % 0.6 % (0.0-1.0); EOS # 0.1 10^3/uL (0.0-0.5); EOS % 2.7 % (0.0-3.0); LYMPH # 1.7 10^3/uL (1.5-5.0); LYMPH % 33.5 % (24.0-44.0); MONO # 0.4 10^3/uL (0.0-0.8); MONO % 7.8 % (2.0-8.0); NEUTROPHILS # 2.8 10^3/uL (1.5-8.5); NEUTROPHILS % 55.0 % (36.0-66.0); PLATELET COUNT, AUTOMATED 182 10^3/uL (150-450)
[2025-07-30 08:36] LABS: CORTISOL AM 10.0 UG/DL (4.3-22.4)
[2025-07-30 08:39] LABS: ESTIMATED AVERAGE GLUCOSE 120.0 MG/DL (60-110)
[2025-07-30 08:41] LABS: FREE T4 1.26 NG/DL (0.89-1.76)
[2025-07-30 08:42] LABS: VITAMIN B12 LEVEL 293.0 PG/ML (211-911)
[2025-07-30 08:43] LABS: ALT/SGPT 47.0 U/L (7.0-40); AST/SGOT 23.0 U/L (<34); CALCIUM LEVEL 8.9 MG/DL (8.5-10.1); CARBON DIOXIDE LEVEL 30.0 MMOL/L (20-31); CHLORIDE LEVEL 107.0 MMOL/L (98-107); CHOLESTEROL LEVEL 257.0 MG/DL (<200); CHOLESTEROL RISK RATIO 8.26 (<5); CREATININE FOR GFR 1.22 MG/DL (0.70-1.30); GLOMERULAR FILTRATION RATE 68.7 (>56); LDL CHOLESTEROL 165.3 MG/DL (<100); NON-HDL-C 225.9 MG/DL; POTASSIUM SERUM 4.5 MMOL/L (3.5-5.1); SODIUM LEVEL 142.0 MMOL/L (136-145); TRIGLYCERIDES LEVEL 303.0 MG/DL (<150)
[2025-07-31 10:30] LABS: APPEARANCE, URINE CLEAR (CLEAR); BACTERIA, URINE AUTO NEGATIVE (NEGATIVE); BILIRUBIN, URINE AUTO NEGATIVE (NEGATIVE); BLOOD, URINE BLOOD NEGATIVE (NEGATIVE); CALCIUM OXALATE CRYSTALS SMALL; GLUCOSE, URINE (UA) AUTO NEGATIVE (NEGATIVE); KETONE, URINE AUTO NEGATIVE (NEGATIVE); LEUKOCYTE ESTERASE, URINE AUTO NEGATIVE (NEGATIVE); MUCUS, URINE SMALL (NEGATIVE); NITRITE, URINE AUTO NEGATIVE (NEGATIVE); PROTEIN, URINE AUTO NEGATIVE (NEGATIVE); RBC, URINE AUTO 1 /HPF (0-3); SPECIFIC GRAVITY URINE AUTO 1.019 (1.002-1.035); SQUAMOUS EPITHELIAL CELL UR AU 0 /HPF (0-6); UROBILINOGEN, URINE AUTO 0.2 mg/dL (0.0-2.0); WBC, URINE AUTO 1 /HPF (0-3)
== END ==
LOC: M LAB 07:24
PROVIDERS: ATTEND General Practice
DX: E11.9 Type 2 diabetes mellitus without complications (principal); E78.5 Hyperlipidemia, unspecified; M19.90 Unspecified osteoarthritis, unspecified site; R53.83 Other fatigue